=== PATIENT | female | born 1985 | race Hispanic/Latino ===

== ENCOUNTER 2017-02-22 05:59 | Day surgery (SDC) | payer MEDICARE ==
--- NOTE | 2017-02-21 14:41 | History and Physical Report ---
History of Present Illness Date of examination: 02/21/17 Date of admission: 02/22/17 Chief complaint: abnormal pap smear with abnormal colpo bx positive for salo 2,3 History of present illness: This is a 31 yo scheduled for LEEP after colpo bx revealing salo 2, 3 after abn pap HGSIL. 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 History: abnormal PAP smear Family/Genetic History: cancer (mother with ovarinan stage 4 cancer ) Social history: , smoking - Obstetrical History : 2 Medications and Allergies Allergies Allergy/AdvReac Type Severity Reaction Status Date / Time codeine Allergy Hives Verified 02/19/17 08:53 Sulfa (Sulfonamide Allergy Hives Verified 02/19/17 08:53 Antibiotics) Home Medications Medication Instructions Recorded Confirmed Last Taken Type No Known Home Medications [No 02/15/17 02/15/17 Unknown History Reported Home Medications] Active Meds: Active Medications Famotidine (Pepcid) 20 mg PO PREOP NR Stop: 02/22/17 23:00 Sodium Chloride (Nacl 0.9% 1000 Ml) 1,000 mls @ 75 mls/hr IV DIRECT YADY Midazolam HCl (Versed) 2 mg IV PREOP NR Stop: 02/22/17 23:59 Review of Systems All systems: negative - Physical Exam Breasts: Positive: deferred Cardiovascular: Regular rate, Normal S1 Lungs: Positive: Clear to auscultation, Normal air movement Abdomen: Positive: normal appearance, soft, normal bowel sounds. Negative: distention, tenderness Genitourinary (Female): Positive: normal external genitalia, normal perenium Vulva: both: normal Vagina: Positive: normal moisture Cervix: Positive: lesion Uterus: Positive: normal size, normal contour Adnexa: both: normal Anus/Rectum: Positive: normal perianal skin, heme negative Extremities: Positive: normal Deep Tendon Reflex Grade: Normal +2 Results All other labs normal. Assessment and Plan A/P CIN3 scheduled for LEEP discussed r/b/a of procefrue which include bleeding and infection and damage to pelvic and non pelvic organs will proceed with LEEP in OR 02/22/17
[2017-02-22] MEDS ORDERED: VERSED IV NR (06:00)
[2017-02-22] MEDS ORDERED: PEPCID PO NR (06:00)
[2017-02-22] MEDS ORDERED: NACL 0.9% 1000 ML 1,000 ML IV SCH (06:00)
[2017-02-22] MEDS ORDERED: MONSEL'S TP ONE ×3 (08:20→10:49)
[2017-02-22] MEDS ORDERED: LUGOL'S SOLUTION 5% TP ONE (08:20)
[2017-02-22] MEDS ORDERED: ZOFRAN IV PRN (09:11)
[2017-02-22] MEDS ORDERED: DILAUDID IV PRN (09:11)
--- NOTE | 2017-02-22 09:11 | Anesthesia Day of Surgery ---
Anesthesia Day of Surgery - Day of Surgery Patient Examined: Yes Patient H&P Reviewed: Yes Patient is NPO: Yes
[2017-02-22] MEDS ORDERED: XYLOCAINE MPF 2% ONE (09:15)
[2017-02-22] MEDS ORDERED: SUBLIMAZE ONE (09:15)
[2017-02-22] MEDS ORDERED: DIPRIVAN 10 MG/ML IV ONE (09:16)
--- NOTE | 2017-02-22 09:17 | Anesthesia Consultation ---
Anesthesia Consult and Med Hx Date of service: 02/22/17 - Airway Anesthetic Teeth Evaluation: Good ROM Head & Neck: Adequate Mental/Hyoid Distance: Adequate Mallampati Class: Class II Intubation Access Assessment: Probably Good - Pulmonary Exam CTA: Yes - Cardiac Exam Cardiac Exam: RRR - Pre-Operative Health Status ASA Pre-Surgery Classification: ASA2 Proposed Anesthetic Plan: General - Pulmonary Hx Smoking: Yes (current, < 1/2 PPD) Hx Asthma: No COPD: No Hx Pneumonia: No - Cardiovascular System Hx Hypertension: No - Central Nervous System Hx Seizures: No CVA: No Hx Psychiatric Problems: Yes - Endocrine Hx Renal Disease: No Hx End Stage Renal Disease: No Hx Insulin Dependent Diabetes: No Hx Hypothyroidism: No Hx Hyperthyroidism: No - Hematic Hx Anemia: No Hx Sickle Cell Disease: No - Other Systems Hx Alcohol Use: No Hx Cancer: No Hx Obesity: Yes
[2017-02-22 09:33] LABS: Basophils % (Auto) 0.4 % (0.0-1.8); Eosinophils % (Auto) 0.3 % (0.0-4.3); Hematocrit 38.9 % (30.3-42.9); Hemoglobin 12.5 gm/dl (10.1-14.3); Mean Corpuscular HGB Conc 32 % (30-34); Mean Corpuscular Hemoglobin 27 pg (28-32); Mean Corpuscular Volume 83 fl (79-97); Platelet Count 188 K/mm3 (140-440); Red Blood Count 4.71 M/mm3 (3.65-5.03); Red Cell Distribution Width 13.7 % (13.2-15.2); White Blood Count 4.8 K/mm3 (4.5-11.0)
[2017-02-22] MEDS ORDERED: DECADRON ONE (10:33)
[2017-02-22] MEDS ORDERED: ZOFRAN ONE (10:33)
[2017-02-22] MEDS ORDERED: SILVER NITRATE TP ONE (10:42)
--- NOTE | 2017-02-22 11:16 | Operative Report ---
Operative Report Operative Report: DATE OF OPERATION: 02/20/2017 POSTOPERATIVE DIAGNOSIS: Cervical intraepithelial neoplasia, grade 3 OPERATION PERFORMED: Loop electrosurgical excision procedure SURGEON: Ladan Garves MD ANESTHESIA: General anesthesia. INDICATIONS FOR PROCEDURE: The patient is a 31-year-old G1 with a history of abnormal Pap smear. A colposcopy demonstrated CEDRIC 3 and CEDRIC 2 The patient has no significant past medical history. Past surgical history is significant for section The patient was advised to undergo a LEEP procedure . All risks and benefits were discussed with the patient including potential risk of labor, cervical incompetence and premature rupture of membranes should she become in the future. The patient accepted these risks. All questions were answered and the patient was taken to the operating room in stable condition. PERTINENT FINDINGS: Bimanual examination revealed a normal sized midline uterus with no adnexal masses palpated. Cervix did not appear to have any gross masses. SPECIMENS: Ectocervix with with 1200 identified with suture ESTIMATED BLOOD LOSS: 50 ml IV FLUIDS: 500 mL of lactated Ringer's. DESCRIPTION OF PROCEDURE: The patient was taken to the OR where she was placed under general anesthesia without difficulty. She was then prepped and draped in the usual sterile fashion and placed in the dorsal lithotomy position. A preoperative bimanual examination revealed findings as above. A preoperative beta quantitative test was negative for as well. At this time, the large Graves speculum was placed in the vagina. . The large loop electrode Green was used to remove the cervix sent to pathology. The smallest loop electrode was used to obtain a top hat for excision of the endocervix very small portion.. The bed of the excised cervical tissue along the cervix was monsels application. Hemostasis was noted. All instruments were removed from vagina at this point. The patient tolerated the procedure well without complication and was taken to the recovery room in stable condition
[2017-02-22] MEDS ORDERED: DEMEROL ONE (11:17)
[2017-02-22] MEDS ORDERED: TORADOL IV PRN (11:31)
--- NOTE | 2017-02-22 11:33 | Post Anesthesia Evaluation ---
- Post Anesthesia Evaluation Patient Participated: Yes Airway Patent: Yes Stable Respiratory Function: Yes Nausea/Vomiting: No Temp > 96.8F: Yes Pain Manageable: Yes Adequeate Hydration: Yes Anesthesia Complications: No Block Receding Appropriately: Not Applicable Patient on Ventilator: No
[2017-02-22] MEDS ORDERED: TORADOL ONE (11:34)
[2017-02-22] MEDS ORDERED: PERCOCET 5/325 PO PRN (11:54)
[2017-02-23 09:59] VITALS: BP 143/85
== END 2017-02-22 13:35 | disposition home or self-care (01) ==
LOC: OR 05:59
PROVIDERS: ATTEND Obstetrics & Gynecology
DX: D06.9 Carcinoma in situ of cervix, unspecified (principal); F17.210 Nicotine dependence, cigarettes, uncomplicated; F31.9 Bipolar disorder, unspecified; E66.9 Obesity, unspecified; Z68.31 Body mass index [BMI] 31.0-31.9, adult; Z98.890 Other specified postprocedural states; Z80.41 Family history of malignant neoplasm of ovary; Z88.5 Allergy status to narcotic agent; Z88.2 Allergy status to sulfonamides
CPT/HCPCS: 36415; 57522; 81025; 85025; 88305; J1100; J1885; J2175; J2250; J2405; J2704; J3010; J7030

== ENCOUNTER 2020-01-11 12:06 | Emergency (ER) | payer BC, MEDICARE ==
[2020-01-11] MEDS ORDERED: KETOROLAC 30 MG/1 ML INJ IM ONE (12:47)
--- NOTE | 2020-01-11 12:53 | Emergency Department Report ---
ED General Adult HPI - General Chief complaint: Pain General Stated complaint: LUPUS FLARE UP Time Seen by Provider: 01/11/20 12:33 Source: patient Mode of arrival: Ambulatory Limitations: No Limitations - History of Present Illness Initial comments: This is a 34-year-old female who states that she was diagnosed as having lupus in 2018. She was last seen here in 2017 and had no history of lupus. She states that she went to a family physician and [facility] and was given a prescription for narcotics about 2 weeks ago. She complains of achy joints particularly in her hands bilaterally. She has a rash involving her neck and her hands which is somewhat recurrent. She states that the rash "hurts". She has excoriations of her legs and obviously pruritus. She does not report fever or chills. She does not report any problems with her kidneys or any other complications of lupus. She states that she has been seen by a check inspector in the past but has never been placed on any medications for lupus. She does not have any explanation for this but states he needs to see a different check inspector. She states that she cannot take steroids because they make her swell up and have problems with her breathing. -: Gradual, week(s) Location: neck, upper extremity, lower extremity Radiation: non-radiation Quality: aching Consistency: intermittent Improves with: none Worsens with: none Associated Symptoms: denies other symptoms, rash Treatments Prior to Arrival: other (And states an recent prescription for hydr ocodone [employer] shows several prescriptions for controlled substances in 2019) - Related Data Home Medications Medication Instructions Recorded Confirmed Last Taken Naproxen Sodium [Aleve] 220 mg PO PRN PRN 01/11/20 01/11/20 01/10/20 19:00 Previous Rx's Medication Instructions Recorded Last Taken Type Ibuprofen [Motrin] 600 mg PO Q8H PRN #30 tablet 02/22/17 Unknown Rx oxyCODONE /ACETAMINOPHEN [Percocet 1 tab PO Q6HR PRN #30 tablet 02/22/17 Unknown Rx 5/325] Naproxen [Naprosyn] 375 mg PO BID PRN #10 tablet 01/11/20 Unknown Rx Allergies Allergy/AdvReac Type Severity Reaction Status Date / Time codeine Allergy Hives Verified 02/19/17 08:53 Sulfa (Sulfonamide Allergy Hives Verified 02/19/17 08:53 Antibiotics) steroid Allergy Rash Uncoded 01/11/20 12:34 ED Review of Systems ROS: Stated complaint: LUPUS FLARE UP Other details as noted in HPI Constitutional: denies: chills, fever Eyes: denies: eye pain, eye discharge, vision change ENT: denies: ear pain, throat pain Respiratory: denies: cough, shortness of breath, wheezing Cardiovascular: denies: chest pain, palpitations Endocrine: no symptoms reported Gastrointestinal: denies: abdominal pain, nausea, diarrhea Genitourinary: denies: urgency, dysuria, discharge Musculoskeletal: as per HPI, joint swelling, arthralgia. denies: back pain Skin: rash. denies: lesions Neurological: denies: headache, weakness, paresthesias Psychiatric: denies: anxiety, depression Hematological/Lymphatic: denies: easy bleeding, easy bruising ED Past Medical Hx - Past Medical History Previous Medical History?: Yes Hx Hypertension: No Hx Congestive Heart Failure: No Hx Diabetes: No Hx Deep Vein Thrombosis: No Hx Renal Disease: No Hx Sickle Cell Disease: No Hx Headaches / Migraines: Yes Hx Seizures: No Hx Asthma: No Hx COPD: No Hx HIV: No Additional medical history: Lupus - Surgical History Past Surgical History?: Yes Additional Surgical History: Cervix removal - Social History Smoking Status: Current Every Day Smoker Substance Use Type: Alcohol - Medications Home Medications: Home Medications Medication Instructions Recorded Confirmed Last Taken Type Ibuprofen [Motrin] 600 mg PO Q8H PRN #30 tablet 02/22/17 01/11/20 Unknown Rx oxyCODONE /ACETAMINOPHEN [Percocet 1 tab PO Q6HR PRN #30 tablet 02/22/17 Unknown Rx 5/325] Naproxen Sodium [Aleve] 220 mg PO PRN PRN 01/11/20 01/11/20 01/10/20 19:00 History Naproxen [Naprosyn] 375 mg PO BID PRN #10 tablet 01/11/20 Unknown Rx ED Physical Exam - General Limitations: No Limitations General appearance: alert, in no apparent distress - Head Head exam: Present: atraumatic, normocephalic - Eye Eye exam: Present: normal appearance. Absent: scleral icterus - ENT ENT exam: Present: mucous membranes moist - Neck Neck exam: Present: normal inspection. Absent: tenderness, meningismus - Respiratory Respiratory exam: Present: normal lung sounds bilaterally. Absent: respiratory distress - Cardiovascular Cardiovascular Exam: Present: regular rate, normal rhythm. Absent: systolic murmur, diastolic murmur, rubs, gallop - GI/Abdominal GI/Abdominal exam: Present: soft, normal bowel sounds. Absent: distended, tenderness, guarding, rebound - Extremities Exam Extremities exam: Present: normal inspection, full ROM, other (I do not see any joint swelling of the small joints of the hand or wrist.) - Back Exam Back exam: Present: normal inspection - Neurological Exam Neurological exam: Present: alert, oriented X3, CN II-XII intact. Absent: motor sensory deficit - Psychiatric Psychiatric exam: Present: normal affect, normal mood - Skin Skin exam: Present: warm, dry, other (Patient has some linear excoriations of her legs. She has an eczematous rash of the dorsum of her hands and her neck. It is scaly erythematous and looks typically eczematous.). Absent: rash ED Course Vital Signs 01/11/20 01/11/20 12:07 13:56 Temperature 97.9 F Pulse Rate 98 H 90 Respiratory 20 16 Rate Blood Pressure 145/85 Blood Pressure 143/88 [Left] O2 Sat by Pulse 98 98 Oximetry - Reevaluation(s) Reevaluation #1: We will get some medical screening tests considering her history of "lupus". She will be given ketorolac. 01/11/20 12:53 Reevaluation #2: Patient neglected to tell me that she had been seen early yesterday morning in the emergency department at [facility]. She came in complaining of chest pain. She was given 8 mg of morphine and 1 mg of Ativan for anxiety. She had a CT of her chest. She was ultimately discharged. Records have been reviewed. 01/11/20 13:49 Reevaluation #3: Patient appeared entirely comfortable. However at the point of discharge she states, "is there any way I could get a morphine shot". She was informed that she received 2 doses of morphine at [facility] with an the last few days. She has no indication for intravenous narcotics. She has no evidence of active joints, her CRP and ESR are completely normal. Personally I do not think she has lupus. She does appear to have some eczematous rash. She will be referred back to her check inspector/primary care physician. 01/11/20 14:57 Reevaluation #4: The patient has given inaccurate information both to the physician and the nurse. Certainly there is a suspicion of drug-seeking behavior here. 01/11/20 15:01 ED Medical Decision Making - Lab Data Result diagrams: 01/11/20 13:10 01/11/20 13:10 Laboratory Results - last 24 hr 01/11/20 13:10 WBC 4.5 RBC 3.91 Hgb 12.2 Hct 35.5 MCV 91 MCH 31 MCHC 34 RDW 13.4 Plt Count 155 Lymph % (Auto) 21.7 [place] % (Auto) 8.3 H Eos % (Auto) 0.3 Baso % (Auto) 0.2 Lymph # 1.0 L [place] # 0.4 Eos # 0.0 Baso # 0.0 Seg Neutrophils % 69.5 Seg Neutrophils # 3.1 Laboratory Results - last 24 hr 01/11/20 01/11/20 13:10 13:10 WBC 4.5 RBC 3.91 Hgb 12.2 Hct 35.5 MCV 91 MCH 31 MCHC 34 RDW 13.4 Plt Count 155 Lymph % (Auto) 21.7 [place] % (Auto) 8.3 H Eos % (Auto) 0.3 Baso % (Auto) 0.2 Lymph # 1.0 L [place] # 0.4 Eos # 0.0 Baso # 0.0 Seg Neutrophils % 69.5 Seg Neutrophils # 3.1 ESR 20 Sodium 140 Potassium 4.2 Chloride 106.1 Carbon Dioxide 22 Anion Gap 16 BUN 9 Creatinine 0.8 Estimated GFR > 60 BUN/Creatinine Ratio 11 Glucose 94 Calcium 8.8 Magnesium 1.90 Total Bilirubin 0.30 AST 16 ALT 17 Alkaline Phosphatase 67 Total Protein 6.8 Albumin 4.1 Albumin/Globulin Ratio 1.5 Critical care attestation.: If time is entered above; I have spent that time in minutes in the direct care of this critically ill patient, excluding procedure time. ED Disposition Clinical Impression: Arthralgia Qualifiers: Joint pain location: unspecified Qualified Code(s): M25.50 - Pain in unspecified joint Disposition: DC-01 TO HOME OR SELFCARE Is pt being admited?: No Does the pt Need Aspirin: No Condition: Stable Instructions: Arthralgia (ED) Additional Instructions: Follow-up with a primary care physician/check inspector. Return as needed any acute problem or worsening. Prescriptions: Naproxen [Naprosyn] 375 mg PO BID PRN #10 tablet PRN Reason: Pain Referrals: PRIMARY CARE,MD [Primary Care Provider] - 3-5 Days [facility] [Provider Group] - 2-3 Days Time of Disposition: 15:00
[2020-01-11 13:40] LABS: Basophils % (Auto) 0.2 % (0.0-1.8); Eosinophils % (Auto) 0.3 % (0.0-4.3); Hematocrit 35.5 % (30.3-42.9); Hemoglobin 12.2 gm/dl (10.1-14.3); Lymphocytes % (Auto) 21.7 % (13.4-35.0); Mean Corpuscular HGB Conc 34 % (30-34); Mean Corpuscular Volume 91 fl (79-97); Monocytes # (Auto) 0.4 K/mm3 (0.0-0.8); Monocytes % (Auto) 8.3 % (0.0-7.3); Platelet Count 155 K/mm3 (140-440); Red Blood Count 3.91 M/mm3 (3.65-5.03); Red Cell Distribution Width 13.4 % (13.2-15.2)
[2020-01-11 13:57] VITALS: BP 143/88
[2020-01-11 14:02] LABS: Erythrocyte Sedimentation Rate 20 mm/Hr (0-20)
[2020-01-11 14:20] LABS: Alanine Aminotransferase 17 units/L (7-56); Albumin 4.1 g/dL (3.9-5); BUN/Creatinine Ratio 11; Blood Urea Nitrogen 9 mg/dL (7-17); Calcium 8.8 mg/dL (8.4-10.2); Hemolysis Index 9
[2020-01-11 14:37] LABS: Bilirubin,Direct < 0.2 mg/dL (0-0.2)
== END 2020-01-11 15:09 | disposition home or self-care (01) ==
LOC: ED 12:06
DX: M25.50 Pain in unspecified joint (principal); G43.909 Migraine, unspecified, not intractable, without status migrainosus; F17.200 Nicotine dependence, unspecified, uncomplicated; Z88.6 Allergy status to analgesic agent; Z88.2 Allergy status to sulfonamides; Z79.899 Other long term (current) drug therapy; Z98.890 Other specified postprocedural states
CPT/HCPCS: 36415; 80048; 80076; 83735; 85025; 85652; 86140; 96372; 99283; J1885